=== PATIENT | female | born 2000 | race Two or more races ===

== ENCOUNTER → 2023-06-25 | Outpatient (CLI) | payer MEDICAID | END | disposition home or self-care (01) | LOC: LAB 08:35 | PROVIDERS: ATTEND Obstetrics & Gynecology | DX: O99.810 Abnormal glucose complicating pregnancy (principal); Z31.430 Encounter of female for testing for genetic disease carrier status for procreative management; Z3A.00 Weeks of gestation of pregnancy not specified | CPT/HCPCS: 82951 ==

== ENCOUNTER 2023-07-09 11:53 | Observation (INO) | payer MEDICAID ==
[2023-07-09 13:05] LABS: Eosinophils # (auto) 0 10 ^3/uL (0-0.8); Eosinophils % (auto) 0.3 % (0.0-7.0); Lymphocytes # (auto) 1.5 10 ^3/uL (0.4-5.4); Mean Corpuscular Hemoglobin 24.6 pg (28.0-32.0); Monocytes # (auto) 0.7 10 ^3/uL (0-1.3); Neutrophils # (auto) 7.3 10 ^3/uL (1.6-8.6); Nucleated Red Blood Cells % 0.1 %; White Blood Cell 9.5 10^3/uL (4.4-10.8)
[2023-07-09 13:10] LABS: Basophils # (auto) 0 10 ^3/uL (0-0.2); Basophils % (auto) 0.5 % (0.0-2.0); Hematocrit 30.3 % (36.0-46.0); Hemoglobin 9.7 g/dL (12.2-16.2); Lymphocytes % (auto) 15.7 % (10.0-50.0); Mean Corpuscular Hgb Conc. 32.1 g/dL (32.0-36.0); Mean Corpuscular Volume 76.5 fL (80.0-100.0); Neutrophils % (auto) 76.5 % (37.0-80.0); Red Blood Cells 3.96 10^6/uL (4.0-5.20); Red Cell Distribution Width 16.2 % (11.8-14.3)
[2023-07-09 13:27] LABS: INR 1.04 (0.9-1.15); Partial Thromboplastin Time 28.5 SEC (24.5-34.5); Prothrombin Time 10.9 sec (9.3-11.8)
[2023-07-09 13:41] LABS: Albumin 3.9 g/dL (3.2-4.8); Alkaline Phosphatase 212 U/L (46-116); Anion Gap 11 (5-15); Aspartate Aminotransferase 14 U/L (13-40); BUN/Creatinine Ratio 17.9 (10.0-20.0); Bilirubin, Total 1.4 mg/dL (0.2-1.0); Blood Urea Nitrogen 7 mg/dL (9-23); Calcium 8.8 mg/dL (8.7-10.4); Carbon Dioxide 21 mmol/L (20-30); Chloride 106 mmol/L (98-107); Glucose 75 mg/dL (74-106); Sodium 138 mmol/L (136-145); Total Protein 6.5 g/dL (5.7-8.2); Uric Acid 4.3 mg/dL (3.1-7.8)
[2023-07-09 13:45] LABS: Alanine Aminotransferase < 9 U/L (7-40)
[2023-07-09 14:43] LABS: Urine Bacteria NONE SEEN /hpf (None Seen); Urine Blood Negative /uL (Negative); Urine Clarity HAZY (Clear); Urine Color Yellow (Yellow); Urine Mucus FEW (None Seen); Urine Protein, UAD 2+ (Negative); Urine Specific Gravity 1.027 (1.001-1.035); Urine WBC 96 /hpf (0 - 5); Urine pH 6.5 (5.0-8.0)
[2023-07-09 14:49] LABS: Protein, Urine 111.6 mg/dL (0.0-11.9)
[2023-07-09 14:52] LABS: Creatinine, Urine 180.99 mg/dL (30.0-125.0); Urine Protein/Creatinine Ratio 0.62
[2023-07-10] MEDS ORDERED: PREN-96 PO ×2 (08:42)
== END 2023-07-09 16:14 | disposition home or self-care (01) ==
LOC: LDRP 11:53 → UNDOADMOB 11:53 → LDRP 12:08
PROVIDERS: ADMIT Obstetrics & Gynecology; ATTEND Obstetrics & Gynecology
DX: O13.3 Gestational [pregnancy-induced] hypertension without significant proteinuria, third trimester (principal); Z3A.36 36 weeks gestation of pregnancy
CPT/HCPCS: 36415; 59025; 76818; 80053; 81001; 81002; 82570; 84156; 84550; 85025; 85610; 85730; G0378

== ENCOUNTER 2023-07-10 08:00 | Observation (INO) | payer MEDICAID ==
[~2023-07-10] VITALS: Ht 149.9 cm; Wt 67.1 kg
[2023-07-10] MEDS ORDERED: PREN-96 PO ×2 (08:42)
[2023-07-10] MEDS: LACTATED RINGER'S 1,000 ML IV ONE (09:52)
== END 2023-07-10 10:43 | disposition home or self-care (01) ==
LOC: LDRP 08:00
PROVIDERS: ADMIT Obstetrics & Gynecology; ATTEND Obstetrics & Gynecology
DX: Z36.89 Encounter for other specified antenatal screening (principal); Z3A.36 36 weeks gestation of pregnancy
CPT/HCPCS: 59025; 76818; 81002; 94760; G0378

== ENCOUNTER 2023-07-14 10:42 | Observation (INO) | payer MEDICAID ==
[~2023-07-14 10:42] MED LIST: PREN-96 PO
[2023-07-14] MEDS ORDERED: LACTATED RINGER'S 1,000 ML IV ONE (12:04)
== END 2023-07-14 13:41 | disposition home or self-care (01) ==
LOC: LDRP 10:42 → UNDOADMOB 10:42 → LDRP 11:10 → UNDODISOB 13:41
PROVIDERS: ADMIT Obstetrics & Gynecology; ATTEND Obstetrics & Gynecology
DX: O13.3 Gestational [pregnancy-induced] hypertension without significant proteinuria, third trimester (principal); Z3A.37 37 weeks gestation of pregnancy
CPT/HCPCS: 76818; G0378; 59025; 81002

== ENCOUNTER 2023-07-21 09:45 | Observation (INO) | payer MEDICAID ==
[2023-07-21 11:33] LABS: Basophils # (auto) 0 10 ^3/uL (0-0.2); Lymphocytes # (auto) 1.6 10 ^3/uL (0.4-5.4); Monocytes # (auto) 0.6 10 ^3/uL (0-1.3); Neutrophils # (auto) 6.8 10 ^3/uL (1.6-8.6)
[2023-07-21 11:35] LABS: Basophils % (auto) 0.5 % (0.0-2.0); Eosinophils # (auto) 0 10 ^3/uL (0-0.8); Eosinophils % (auto) 0.5 % (0.0-7.0); Hematocrit 27.3 % (36.0-46.0); Hemoglobin 8.7 g/dL (12.2-16.2); Lymphocytes % (auto) 17.8 % (10.0-50.0); Mean Corpuscular Hemoglobin 23.8 pg (28.0-32.0); Mean Corpuscular Hgb Conc. 31.8 g/dL (32.0-36.0); Mean Corpuscular Volume 74.7 fL (80.0-100.0); Neutrophils % (auto) 74.2 % (37.0-80.0); Nucleated Red Blood Cells % 0.1 %; Red Blood Cells 3.65 10^6/uL (4.0-5.20); Red Cell Distribution Width 16.8 % (11.8-14.3); White Blood Cell 9.2 10^3/uL (4.4-10.8)
[2023-07-21 11:56] LABS: Protein, Urine 50.2 mg/dL (0.0-11.9)
[2023-07-21 11:58] LABS: Albumin 3.5 g/dL (3.2-4.8); Alkaline Phosphatase 196 U/L (46-116); Anion Gap 10 (5-15); Aspartate Aminotransferase 12 U/L (13-40); Bilirubin, Total 0.9 mg/dL (0.2-1.0); Calcium 8.6 mg/dL (8.7-10.4); Carbon Dioxide 21 mmol/L (20-30); Chloride 105 mmol/L (98-107); Glucose 123 mg/dL (74-106); Potassium 3.5 mmol/L (3.5-5.1); Sodium 136 mmol/L (136-145); Total Protein 6.1 g/dL (5.7-8.2); Uric Acid 3.7 mg/dL (3.1-7.8)
[2023-07-21 11:59] LABS: Creatinine, Urine 103.69 mg/dL (30.0-125.0); Urine Protein/Creatinine Ratio 0.48
[2023-07-21 12:10] LABS: BUN/Creatinine Ratio 14.3 (10.0-20.0); Blood Urea Nitrogen < 5 mg/dL (9-23)
[2023-07-21 12:11] LABS: Alanine Aminotransferase < 9 U/L (7-40)
[2023-07-21 12:25] LABS: INR 1.04 (0.9-1.15); Partial Thromboplastin Time 27.4 SEC (24.5-34.5); Prothrombin Time 10.9 sec (9.3-11.8)
[2023-07-21 12:56] LABS: Urine Bacteria MANY /hpf (None Seen); Urine Blood Negative /uL (Negative); Urine Clarity HAZY (Clear); Urine Color Yellow (Yellow); Urine Mucus FEW (None Seen); Urine Protein, UAD 1+ (Negative); Urine Specific Gravity 1.019 (1.001-1.035); Urine Urobilinogen Normal (Negative); Urine WBC 124 /hpf (0 - 5); Urine WBC Clumps PRESENT /hpf (None Seen); Urine pH 6.5 (5.0-8.0)
== END 2023-07-21 12:44 | disposition home or self-care (01) ==
LOC: UNDOADMOB 09:45 → LDRP 09:45
PROVIDERS: ADMIT Obstetrics & Gynecology; ATTEND Obstetrics & Gynecology
DX: O13.3 Gestational [pregnancy-induced] hypertension without significant proteinuria, third trimester (principal); Z3A.38 38 weeks gestation of pregnancy
CPT/HCPCS: 36415; 59025; 76818; 80053; 81001; 82570; 84156; 84550; 85025; 85610; 85730; 94760; G0378

== ENCOUNTER 2023-07-24 08:12 | Observation (INO) | payer MEDICAID | END 2023-07-24 10:35 | disposition home or self-care (01) | LOC: LDRP 08:12 | PROVIDERS: ADMIT Obstetrics & Gynecology; ATTEND Obstetrics & Gynecology | DX: O13.3 Gestational [pregnancy-induced] hypertension without significant proteinuria, third trimester (principal); O36.8330 Maternal care for abnormalities of the fetal heart rate or rhythm, third trimester, not applicable or unspecified; O26.893 Other specified pregnancy related conditions, third trimester; N89.8 Other specified noninflammatory disorders of vagina; Z3A.38 38 weeks gestation of pregnancy | CPT/HCPCS: 59025; 76818; 81002; G0378 ==

== ENCOUNTER 2023-07-28 08:28 | Observation (INO) | payer MEDICAID ==
[2023-07-28 09:27] LABS: Basophils # (auto) 0 10 ^3/uL (0-0.2); Basophils % (auto) 0.3 % (0.0-2.0); Eosinophils # (auto) 0.1 10 ^3/uL (0-0.8); Eosinophils % (auto) 0.7 % (0.0-7.0); Hematocrit 28.4 % (36.0-46.0); Lymphocytes # (auto) 1.6 10 ^3/uL (0.4-5.4); Lymphocytes % (auto) 17.4 % (10.0-50.0); Mean Corpuscular Hemoglobin 23.4 pg (28.0-32.0); Mean Corpuscular Hgb Conc. 31.8 g/dL (32.0-36.0); Mean Corpuscular Volume 73.7 fL (80.0-100.0); Monocytes # (auto) 0.6 10 ^3/uL (0-1.3); Monocytes % (auto) 6.3 % (0.0-12.0); Neutrophils # (auto) 6.9 10 ^3/uL (1.6-8.6); Neutrophils % (auto) 75.3 % (37.0-80.0); Nucleated Red Blood Cells % 0.1 %; Red Blood Cells 3.86 10^6/uL (4.0-5.20); Red Cell Distribution Width 17.1 % (11.8-14.3); White Blood Cell 9.1 10^3/uL (4.4-10.8)
[2023-07-28 09:35] LABS: Urine Bacteria FEW /hpf (None Seen); Urine Blood TRACE /uL (Negative); Urine Clarity CLOUDY (Clear); Urine Color Yellow (Yellow); Urine Mucus FEW (None Seen); Urine Protein, UAD 1+ (Negative); Urine Specific Gravity 1.019 (1.001-1.035); Urine Urobilinogen Normal (Negative); Urine WBC 143 /hpf (0 - 5); Urine pH 6.5 (5.0-8.0)
[2023-07-28 09:41] LABS: Creatinine, Urine 93.64 mg/dL (30.0-125.0); Urine Protein/Creatinine Ratio 0.46
[2023-07-28 09:44] LABS: Albumin 3.7 g/dL (3.2-4.8); Alkaline Phosphatase 244 U/L (46-116); Anion Gap 8 (5-15); Aspartate Aminotransferase 17 U/L (13-40); Calcium 9.1 mg/dL (8.5-10.1); Carbon Dioxide 23 mmol/L (20-30); Chloride 106 mmol/L (98-107); Glucose 158 mg/dL (74-106); Potassium 3.7 mmol/L (3.5-5.1); Sodium 137 mmol/L (136-145)
[2023-07-28 09:45] LABS: Total Protein 6.5 g/dL (5.7-8.2)
[2023-07-28 09:47] LABS: INR 1.04 (0.9-1.15); Partial Thromboplastin Time 27.3 SEC (24.5-34.5); Prothrombin Time 10.9 sec (9.3-11.8)
[2023-07-28 09:50] LABS: Alanine Aminotransferase < 9 U/L (7-40); BUN/Creatinine Ratio 9.4 (10.0-20.0); Blood Urea Nitrogen < 5 mg/dL (9-23)
[2023-07-28 10:52] LABS: Uric Acid 4.1 mg/dL (3.1-7.8)
== END 2023-07-28 10:56 | disposition home or self-care (01) ==
LOC: UNDOADMOB 08:28 → LDRP 08:28 → UNDODISOB 10:56
PROVIDERS: ADMIT Obstetrics & Gynecology; ATTEND Obstetrics & Gynecology
DX: O26.893 Other specified pregnancy related conditions, third trimester (principal); R10.9 Unspecified abdominal pain; Z3A.39 39 weeks gestation of pregnancy
CPT/HCPCS: 36415; 59025; 76818; 80053; 81001; 81002; 82570; 84156; 84550; 85025; 85610; 85730; 94760; G0378

== ENCOUNTER 2023-08-03 08:14 | Observation (INO) | payer MEDICAID | END 2023-08-03 10:29 | disposition home or self-care (01) | LOC: UNDOADMOB 08:14 → LDRP 08:14 | PROVIDERS: ADMIT Obstetrics & Gynecology; ATTEND Obstetrics & Gynecology | DX: O13.3 Gestational [pregnancy-induced] hypertension without significant proteinuria, third trimester (principal); O62.9 Abnormality of forces of labor, unspecified; O26.853 Spotting complicating pregnancy, third trimester; O14.93 Unspecified pre-eclampsia, third trimester; Z3A.39 39 weeks gestation of pregnancy | CPT/HCPCS: 59025; 76805; 76818; 81002; 94760; G0378 ==

== ENCOUNTER 2023-08-03 22:52 | Inpatient (IN) | payer MEDICAID ==
[~2023-08-03] VITALS: Ht 149.9 cm; Wt 69.4 kg
[2023-08-03] MEDS ORDERED: BUTORPHANOL TARTRATE 2 MG/1 ML VIAL IV PRN ×2 (23:30)
[2023-08-03] MEDS ORDERED: LIDOCAINE 2%HCL (LOCAL ANESTH.) INJ 20ML MDV IJ PRN (23:30)
[2023-08-04 00:02] LABS: Hemoglobin 9.2 g/dL (12.2-16.2)
[2023-08-04 00:04] LABS: Basophils # (auto) 0 10 ^3/uL (0-0.2); Basophils % (auto) 0.3 % (0.0-2.0); Eosinophils # (auto) 0 10 ^3/uL (0-0.8); Eosinophils % (auto) 0.2 % (0.0-7.0); Hematocrit 28.8 % (36.0-46.0); Lymphocytes # (auto) 1.3 10 ^3/uL (0.4-5.4); Lymphocytes % (auto) 12.1 % (10.0-50.0); Mean Corpuscular Hemoglobin 23.1 pg (28.0-32.0); Mean Corpuscular Hgb Conc. 31.9 g/dL (32.0-36.0); Mean Corpuscular Volume 72.4 fL (80.0-100.0); Monocytes # (auto) 0.8 10 ^3/uL (0-1.3); Monocytes % (auto) 7.7 % (0.0-12.0); Neutrophils # (auto) 8.4 10 ^3/uL (1.6-8.6); Neutrophils % (auto) 79.7 % (37.0-80.0); Nucleated Red Blood Cells % 0.3 %; Red Blood Cells 3.99 10^6/uL (4.0-5.20); Red Cell Distribution Width 17.7 % (11.8-14.3); White Blood Cell 10.6 10^3/uL (4.4-10.8)
[2023-08-04 00:13] LABS: Urine Bacteria FEW /hpf (None Seen); Urine Blood 2+ /uL (Negative); Urine Clarity CLOUDY (Clear); Urine Color Yellow (Yellow); Urine Mucus FEW (None Seen); Urine Protein, UAD 1+ (Negative); Urine Specific Gravity 1.025 (1.001-1.035); Urine Urobilinogen Normal (Negative); Urine WBC 424 /hpf (0 - 5); Urine WBC Clumps PRESENT /hpf (None Seen); Urine pH 6.5 (5.0-8.0)
[2023-08-04] MEDS: LACTATED RINGER'S 1,000 ML IV SCH (00:16)
[2023-08-04 00:18] LABS: INR 1.04 (0.9-1.15); Partial Thromboplastin Time 27.1 SEC (24.5-34.5); Prothrombin Time 10.9 sec (9.3-11.8)
[2023-08-04 00:22] LABS: Albumin 3.8 g/dL (3.2-4.8); Alkaline Phosphatase 248 U/L (46-116); Anion Gap 6 (5-15); Aspartate Aminotransferase 15 U/L (13-40); BUN/Creatinine Ratio 21.6 (10.0-20.0); Blood Urea Nitrogen 8 mg/dL (9-23); Calcium 9.4 mg/dL (8.7-10.4); Carbon Dioxide 23 mmol/L (20-30); Chloride 106 mmol/L (98-107); Glucose 108 mg/dL (74-106); Potassium 3.9 mmol/L (3.5-5.1); Sodium 135 mmol/L (136-145); Uric Acid 3.6 mg/dL (3.1-7.8)
[2023-08-04 00:23] LABS: Alanine Aminotransferase < 9 U/L (7-40); Bilirubin, Total 0.9 mg/dL (0.2-1.0); Total Protein 6.7 g/dL (5.7-8.2)
[2023-08-04] MEDS ORDERED: NALOXONE HCL 0.4 MG/ML VIAL IV ONE (00:45)
[2023-08-04] MEDS ORDERED: LIDOCAINE HCL 2 %PF INJ 10ML AMP IJ ONE (00:45)
[2023-08-04] MEDS: PENICILLIN G POT 5MIL/D5 50ML 50 ML IV ONE (01:12)
[2023-08-04] MEDS: WITCH HAZEL-GLYCERIN PAD TOP PRN (01:13)
[2023-08-04] MEDS: DERMOPLAST 60ML BOTTLE TOP PRN (01:13)
[2023-08-04] MEDS: PHISODERM TOP SOLN 240ML BTL TOP PRN (01:13)
[2023-08-04] MEDS: LACTATED RINGER'S 1,000 ML IV ONE (01:14)
[2023-08-04] MEDS: ROPIVACAINE HCL 200 ML ONE (01:17)
[2023-08-04] MEDS ORDERED: ePHEDrine SULFATE 50 MG/ML AMP ONE (01:29)
[2023-08-04 01:36] LABS: Protein, Urine 88.1 mg/dL (0.0-11.9)
[2023-08-04 01:39] LABS: Amphetamine Screen, Urine Neg (NEGATIVE); Barbiturate Scree,Urine Neg (NEGATIVE); Benzodiazephine Screen, Urine Neg (NEGATIVE); Cannabinoid Screen, Urine Neg (NEGATIVE); Cocaine Screen, Urine Neg (NEGATIVE); Opiate Scree,Urine Neg (NEGATIVE); Phencyclidine Screen, Urine Neg (NEGATIVE)
[2023-08-04] MEDS: fentaNYL CITRATE 100 MCG/2 ML VL IV ONE (01:52)
[2023-08-04 01:54] LABS: Creatinine, Urine 80.69 mg/dL (30.0-125.0); Urine Protein/Creatinine Ratio 1.09
[2023-08-04] MEDS ORDERED: TERBUTALINE SULFATE 1 MG/ML 1ML VIAL SC PRN (03:45)
[2023-08-04] MEDS ORDERED: LACT. RINGERS/OXYTOCIN 20UNITS 1,000 ML IV SCH (04:30)
[2023-08-04] MEDS: STERILE WATER 0 ML ONE (04:44)
[2023-08-04] MEDS: PENICILLIN G POTASSIUM 2,500,000 UNITS in D5W 5% 50 ML IV SCH (04:49)
[2023-08-04] MEDS: PENICILLIN G POT 5MILLION UNIT VIAL ONE (04:53)
[2023-08-04] MEDS: LACT. RINGERS/OXYTOCIN 20UNITS 500 ML IV ONE ×2 (08:29)
[2023-08-04] MEDS: METHYLERGONOVINE MALEATE 0.2 MG/ML AMP IM ONE (08:47)
[2023-08-04] MEDS: miSOPROStol 100 mcg TAB ONE (08:49)
[2023-08-04] MEDS ORDERED: ONDANSETRON ODT 4 MG TAB PO PRN (09:00)
[2023-08-04] MEDS: IBUPROFEN 600 MG TAB PO PRN (09:23)
[2023-08-04 11:00] VITALS: BP 129/71; PULSE 90; RESP 17; TEMP 100.4; O2SAT 98
[2023-08-04] MEDS: ACETAMINOPHEN 325 MG TAB PO PRN (11:20)
[2023-08-04 15:00] VITALS: BP 121/74; PULSE 110; RESP 16; TEMP 98.6; O2SAT 96
[2023-08-04 19:00] VITALS: BP 117/65; PULSE 94; RESP 18; TEMP 99; O2SAT 98
[2023-08-04] MEDS: DOCUSATE SOD 100 MG CAP PO SCH (22:05)
[2023-08-04 23:00] VITALS: BP 112/68; PULSE 90; RESP 16; TEMP 98.8; O2SAT 99
[2023-08-05] MEDS ORDERED: DOCU-265 PO (00:41)
[2023-08-05] MEDS ORDERED: FER325T PO (00:41)
[2023-08-05] MEDS ORDERED: IBU600T PO (00:41)
[2023-08-05] MEDS ORDERED: ASCO500T11 PO (00:41)
[2023-08-05 03:00] VITALS: BP 115/68; PULSE 90; RESP 16; TEMP 98.4; O2SAT 98
[2023-08-05 07:00] VITALS: BP 113/65; PULSE 88; RESP 17; TEMP 98.4; O2SAT 98
[2023-08-05 08:20] LABS: Basophils # (auto) 0 10 ^3/uL (0-0.2); Basophils % (auto) 0.3 % (0.0-2.0); Eosinophils # (auto) 0.1 10 ^3/uL (0-0.8); Eosinophils % (auto) 0.5 % (0.0-7.0); Hematocrit 25.8 % (36.0-46.0); Hemoglobin 7.9 g/dL (12.2-16.2); Lymphocytes # (auto) 2.3 10 ^3/uL (0.4-5.4); Lymphocytes % (auto) 14.5 % (10.0-50.0); Mean Corpuscular Hemoglobin 22.4 pg (28.0-32.0); Mean Corpuscular Hgb Conc. 30.8 g/dL (32.0-36.0); Mean Corpuscular Volume 72.7 fL (80.0-100.0); Monocytes % (auto) 6.1 % (0.0-12.0); Neutrophils # (auto) 12.3 10 ^3/uL (1.6-8.6); Neutrophils % (auto) 78.6 % (37.0-80.0); Nucleated Red Blood Cells % 0.2 %; Red Blood Cells 3.55 10^6/uL (4.0-5.20); Red Cell Distribution Width 17.9 % (11.8-14.3); White Blood Cell 15.7 10^3/uL (4.4-10.8)
[2023-08-05 11:05] VITALS: BP 120/74; PULSE 92; RESP 17; TEMP 98; O2SAT 98
[2023-08-05 12:07] LABS: RPR Non Reactive (Non Reactive)
[2023-08-05 14:39] VITALS: BP 116/70; PULSE 90; RESP 16; TEMP 98.4; O2SAT 97
[2023-08-05 19:00] VITALS: BP 127/72; PULSE 93; RESP 18; TEMP 98.2; O2SAT 98
[2023-08-05 23:00] VITALS: BP 111/74; PULSE 88; RESP 18; TEMP 97.7; O2SAT 99
[2023-08-06 03:00] VITALS: BP 115/74; PULSE 82; RESP 18; TEMP 97.7; O2SAT 99
[2023-08-06 07:00] VITALS: BP 118/69; PULSE 99; RESP 16; TEMP 98.8; O2SAT 99
== END 2023-08-06 13:35 | disposition home or self-care (01) | DRG 560 ==
LOC: LDRP 22:52 → OBSVTOIN 23:24 → LDRP 23:25
PROVIDERS: ADMIT Obstetrics & Gynecology; ATTEND Obstetrics & Gynecology
PROC: 10E0XZZ Delivery of Products of Conception, External Approach (ICD-10-PCS; principal; 2023-08-04)
PROC: 0KQM0ZZ Repair Perineum Muscle, Open Approach (ICD-10-PCS; 2023-08-04)
PROC: 3E0S3BZ Introduction of Anesthetic Agent into Epidural Space, Percutaneous Approach (ICD-10-PCS; 2023-08-04)
PROC: 00HU33Z Insertion of Infusion Device into Spinal Canal, Percutaneous Approach (ICD-10-PCS; 2023-08-04)
DX: O99.02 Anemia complicating childbirth (principal); Z37.0 Single live birth; D62 Acute posthemorrhagic anemia; O70.1 Second degree perineal laceration during delivery; D50.9 Iron deficiency anemia, unspecified; O99.824 Streptococcus B carrier state complicating childbirth; Z3A.39 39 weeks gestation of pregnancy
CPT/HCPCS: 36415; 59025; 59409; 62282; 80053; 80307; 81001; 81002; 82570; 84156; 84550; 85025; 85384; 85610; 85730; 86592; 86850; 86900; 86901; 94760; 94762; 96360; 96361; 96365; 96366; 96372; G0378; J2540; J2590; J7060